=== PATIENT | male | born 1950 | race Caucasian/White ===

== ENCOUNTER 2018-05-24 10:04 | Emergency (ER) | payer MEDICARE ==
--- NOTE | 2018-05-24 10:45 | ERPHSYRPT ---
- History of Present Illness Time Seen by Provider: 05/24/18 10:30 Source: patient Exam Limitations: no limitations Patient Subjective Stated Complaint: Patient stated he fell off of a bridge about 6 feet and landed on the right side of his body 05/22/18. Triage Nursing Assessment: Patient present in ER ambulating and transfers to bed per self. Patient states he fell off of a bridge about 6 feet and landed on the right side of his body on 05/22/18. Patient states his left side ribs and hip area hurt 04/30. Yellow bruising noted to right pelvic area. Patient lungs clear A/P suha. Patient states he had open heart surgery in January. Physician History: 67-year-old white male arrives with complaint of right rib pain, pain with breathing shortness of breath pain in the right hip. Symptoms for 2 days. Patient states he was walking across his bridge, he stepped on a cat apparently jumped and fell landing on his right side. He has right rib pain shortness of breath and right hip pain as noted above. He is not taking anything for his pain. Past medical history includes high blood pressure, coronary artery disease, myocardial infarction, hypercholesterolemia. Past surgical history includes esophageal surgery, rotator cuff, appendectomy, CABG blood 60 chews Timing/Duration: today Severity: mild Modifying Factors: Improves With: other (pain worse with walking and deep breathing) Associated Symptoms: shortness of breath, chest pain (Pain right lateral ribs), No nausea, No vomiting, No abdominal pain, No heartburn, No diaphoresis, No cough, No chills Allergies/Adverse Reactions: No Known Drug Allergies Allergy (Verified 05/24/18 10:28) Home Medications: Aspirin 81 mg PO DAILY 08/02/15 [History] Celecoxib [Celebrex] 200 mg PO BID 08/02/15 [History] Escitalopram Oxalate 10 mg [Lexapro 10 MG] 10 mg PO DAILY 08/02/15 [History] Pravastatin Sodium 40 mg PO DAILY 08/02/15 [History] Clopidogrel Bisulfate [Clopidogrel] 75 mg PO DAILY 05/24/18 [History] Metoprolol Tartrate 12.5 mg PO BID 05/24/18 [History] Multivitamin [Multivitamins] 1 each PO DAILY 05/24/18 [History] Vit B6/Me-Thfolate/Me-B12/Ala [Podiapn Capsule] 1 ea PO BID 05/24/18 [History] Hx Tetanus, Diphtheria Vaccination/Date Given: No Hx Influenza Vaccination/Date Given: No Hx Pneumococcal Vaccination/Date Given: No Immunizations Up to Date: (unsure) - Past Medical History Pertinent Past Medical History: Yes Neurological History: Peripheral Neuropathy ENT History: No Pertinent History Cardiac History: Angina Respiratory History: Other Endocrine Medical History: No Pertinent History Musculoskeletal History: Osteoarthritis GI Medical History: GERD History: No Pertinent History Psycho-Social History: No Pertinent History Male Reproductive Disorders: No Pertinent History Other Medical History: 3L O2 at night, history of 3 fractured ribs - Past Surgical History Past Surgical History: Yes Neuro Surgical History: No Pertinent History Cardiac: Cardiac Catheterization Respiratory: No Pertinent History Gastrointestinal: Appendectomy Genitourinary: No Pertinent History Musculoskeletal: Orthopedic Surgery Male Surgical History: No Pertinent History Other Surgical History: esophageal surgery 33 yrs ago,right rotator cuff repair, - Social History Smoking Status: Never smoker Exposure to second hand smoke: No Drug Use: none Patient Lives Alone: Yes - Nursing Vital Signs Nursing Vital Signs: Initial Vital Signs Temperature 100.7 F 05/24/18 10:11 Pulse Rate 71 05/24/18 10:11 Respiratory Rate 18 05/24/18 10:11 Blood Pressure 112/65 05/24/18 10:11 O2 Sat by Pulse Oximetry 93 L 05/24/18 10:11 Pain Scale Pain Intensity 7 - Physical Exam General Appearance: no apparent distress, alert Eye Exam: PERRL/EOMI, eyes nml inspection Ears, Nose, Throat Exam: normal ENT inspection, TMs normal, pharynx normal, moist mucous membranes Neck Exam: normal inspection, non-tender, supple, full range of motion Respiratory Exam: normal breath sounds, chest tenderness (right lateral ribs tender with palpation), lungs clear, airway intact, No respiratory distress Cardiovascular Exam: regular rate/rhythm, normal heart sounds, normal peripheral pulses, capillary refill <2 sec, No murmur Gastrointestinal/Abdomen Exam: soft, normal bowel sounds, No tenderness, No mass Back Exam: normal inspection, normal range of motion, No CVA tenderness, No vertebral tenderness Extremity Exam: normal range of motion, pelvis stable, other (right hip tender with palpation laterally) Neurologic Exam: alert, oriented x 3, cooperative, clinical investigator II-XII nml as tested, normal mood/affect, nml cerebellar function, nml station & gait, sensation nml, No motor deficits Skin Exam: normal color, warm, dry, No rash SpO2 Interpretation: normal (93%) SpO2: 93 Oxygen Delivery: Room Air - Course Nursing assessment & vital signs reviewed: Yes EKG Interpreted by Me: RATE (68 bpm), Sinus Rhythm, NORMAL AXIS, Other ( EKGsinus rhythm, 68 bpm, normal axis, Q wave in lead 3, no acute or t wave changes.) - Radiology Exams Right Hip X-ray Interpretation: Discussed w/ radiologist (X-ray right hip: Impression: 1. No acute fracture or dislocation of the right hip is seen.) Chest X-ray Interpretation: Discussed w/ radiologist (Chest x-ray: Impression: 1. The level of inspirat May 10, 2015 the current exam revealed some mild bibasilar linear subsegmental atelectic changes 2. Interval coronary artery bypass surgery. 3. No findings of acute heart failure or focal airspace pneumonic infiltrates. ) Right Ribs X-ray Interpretation: Discussed w/ radiologist (X-ray right ribs: Impression: 1. No definite acute right sided rib fracture is seen. 2. Minimal linear plate atelectasis at the right lung base, perhaps due to splinting.) Ordered Tests: Active Orders 24 hr Category Date Time Status EKG-ER Only STAT Care 05/24/18 10:39 Active CHEST 1 VIEW (PORTABLE) Stat Exams 05/24/18 10:41 Completed HIP UNI (2V) INCL PEL IF DONE Stat Exams 05/24/18 10:42 Completed RIBS UNILATERAL Stat Exams 05/24/18 11:13 Taken - Progress Progress: improved Progress Note: 05/24/18 11:24 67-year-old white male with history of high blood pressure coronary artery disease myocardial infarction hypercholesterolemia who has had a bypass graft arrives with complaint of pain in his right lateral ribs pain in his right hip after falling off of his bridge 2 days ago. Patient states he feels short of breath she states she has pain with deep breathing in the right lateral ribs. He also is having pain in his right hip. Patient was apparently driving therefore he is not given analgesics here in the emergency room. 05/24/18 11:54 The patient's chest x-ray did not show any evidence of acute heart failure or focal airspace pneumonic infiltrates, x-ray of the right ribs do not show any fractures however there is some minimal lineral plate atelectasis at the right base which may be due to splinting. Xray of the right hip is negative for fracture or dislocation will place patient on norco for pain - Departure Time of Disposition: 11:57 Departure Disposition: Home Clinical Impression: Accidental fall Qualifiers: Encounter type: initial encounter Qualified Code(s): W19.XXXA - Unspecified fall, initial encounter Contusion of rib on right side Qualifiers: Encounter type: initial encounter Qualified Code(s): S20.211A - Contusion of right front wall of thorax, initial encounter Contusion of right hip Qualifiers: Encounter type: initial encounter Qualified Code(s): S70.01XA - Contusion of right hip, initial encounter Condition: Fair Critical Care Time: No Referrals: LULU BARRAGAN [Primary Care Provider] - Instructions: Bruised Rib Additional Instructions: Return home, Ice to contused areas 24-48 hours, Girard 5/325 #12 one orally every 4-6 hours as needed for pain, Follow-up with your family doctor if symptoms worse, no better in 48 hours, or persist longer than one week, Return for acute distress or for severe symptoms,
--- NOTE | 2018-05-24 11:35 | XRAY ---
Exam: AP upright portable chest film sitting on a cart from 05/24/2018. Comparison: Two-view chest from 05/10/2015. Indication: Patient fell 2 days ago, right rib pain, history of prior open heart surgery. Findings: The level of inspiration is not as deep on today's study as compared to 05/10/2015. I believe there is some minimal bibasilar subsegmental atelectatic changes on the current study. An airspace infiltrate is not seen. The transverse heart size appears within normal limits. There is evidence of interval CABG with midline sternotomy as compared to 05/10/2015. I again note several surgical clips in the projection of the gastroesophageal junction. Correlate with prior surgical history. The central pulmonary vessels do not appear congested. No pneumothorax or pleural fluid is seen. No acute osseous process is seen. There again is a suggestion of partial excision of the lateral end of the right clavicle representing no change from 05/10/2015. Impression: 1. The level of inspiration is not as deep on the current study as compared to 05/10/2015. The current exam reveals some mild bibasilar linear subsegmental atelectatic changes. 2. Interval coronary artery bypass surgery. 3. I see no findings of acute heart failure or focal airspace pneumonic infiltrates. 4. Evidence of other postsurgical changes, as discussed above.
--- NOTE | 2018-05-24 11:36 | XRAY ---
Exam: Two-view right hip from 05/24/2018. Comparison: None. Indication: Patient fell 2 days ago, complains of right hip pain. Findings: AP and frog-leg lateral views of the right hip were obtained. There is no acute fracture or dislocation. The right pubic ring appears intact. The right hip joint space is adequately preserved. The right sacroiliac joint appears unremarkable. Impression: 1. No acute fracture or dislocation of the right hip is seen.
--- NOTE | 2018-05-24 11:56 | XRAY ---
Exam: Right rib films from 05/24/2018. Comparison: Right rib films from 02/10/2016. Indication: Patient fell 2 days ago, complains of right rib pain, history of prior open heart surgery. Findings: 4 images of the right rib cage were obtained in AP and oblique projections. I again see evidence of prior CABG with midline sternotomy. There are 12 pairs of thoracic ribs. Minimal right basilar plate atelectasis is seen. I see no definite acute right rib fracture line or cortical step-off deformity to suggest a displaced fracture. No right-sided pneumothorax or pleural effusion is seen. I again see findings suggesting past partial excision of the lateral end of the right clavicle representing no change. Impression: 1. No definite acute right-sided rib fracture is seen. 2. I do note minimal linear plate atelectasis at the right lung base, perhaps due to splinting. Correlate clinically.
[2018-05-24 12:09] VITALS: BP 95/70; PULSE 69; O2SAT 92
== END 2018-05-24 12:12 | disposition home or self-care (01) ==
LOC: ED 10:04
DX: S20.211A Contusion of right front wall of thorax, initial encounter (principal); S70.01XA Contusion of right hip, initial encounter; W17.89XA Other fall from one level to another, initial encounter; Y92.89 Other specified places as the place of occurrence of the external cause; I10 Essential (primary) hypertension; I25.810 Atherosclerosis of coronary artery bypass graft(s) without angina pectoris; I25.2 Old myocardial infarction; E78.00 Pure hypercholesterolemia, unspecified; Z79.899 Other long term (current) drug therapy; G62.9 Polyneuropathy, unspecified; M19.90 Unspecified osteoarthritis, unspecified site; K21.9 Gastro-esophageal reflux disease without esophagitis
CPT/HCPCS: 71045; 71100; 73502; 93005; 99284

== ENCOUNTER 2021-12-21 14:24 | Day surgery (SDC) | payer MEDICARE ==
[2021-12-21] MEDS ORDERED: Depo-Medrol 40 MG/ML IM ONE (14:25)
[2021-12-21] MEDS ORDERED: BUPIVACAINE 0.5% VIAL IJ ONE (14:25)
[2021-12-21] MEDS ORDERED: Lactated Ringers 1,000 ML IV ONE (16:04)
[2021-12-21] MEDS ORDERED: DIPRIVAN 200 MG/20 ML IV ONE (17:27)
--- NOTE | 2021-12-21 19:27 | XRAY ---
Indication: Right hip injection. Intraoperative fluoroscopy provided for 21 seconds. Single digital spot image obtained prone submitted for interpretation demonstrates needle tip lateral to the right femur neck. Small amount of contrast injected for needle tip placement. Correlate with intraoperative findings/report.
--- NOTE | 2021-12-21 19:27 | XRAY ---
Indication: Right SI joint injection. Intraoperative fluoroscopy provided for 7 seconds. 2 digital spot image submitted for interpretation demonstrates needle tip projecting over the inferior right SI joint. Correlate with intraoperative findings/report.
--- NOTE | 2021-12-22 09:22 | XRAY ---
7 seconds fluoroscopy time in surgery for injection of the right SI joint.
--- NOTE | 2021-12-22 09:22 | XRAY ---
21 seconds fluoroscopy time in surgery for intra-articular injection of the right hip.
== END 2021-12-21 17:50 | disposition home or self-care (01) ==
LOC: SDC-PAIN 14:24
PROVIDERS: ATTEND Psychiatry & Neurology Pain Medicine
DX: M46.1 Sacroiliitis, not elsewhere classified (principal); M16.11 Unilateral primary osteoarthritis, right hip
CPT/HCPCS: 20610; 27096; 72020; 73501; 77002; G0260; J1030; J2704; Q9966

== ENCOUNTER 2022-01-12 13:31 | Day surgery (SDC) | payer MEDICARE ==
[2022-01-12] MEDS ORDERED: Depo-Medrol 40 MG/ML IM ONE (13:32)
[2022-01-12] MEDS ORDERED: Sodium Chloride 0.9(Preservative Free) 10 ML IJ ONE (13:32)
[2022-01-12] MEDS ORDERED: Lactated Ringers 1,000 ML IV ONE (14:56)
[2022-01-12] MEDS ORDERED: DIPRIVAN 200 MG/20 ML IV ONE (15:16)
--- NOTE | 2022-01-12 16:35 | XRAY ---
Indication: Right L4-S1 transforaminal SERA. Intraoperative fluoroscopy provided for 31 seconds. 3 digital spot image submitted for interpretation demonstrates posterior needle tips projecting over the expected right L4 and L5 nerve roots. Small amount of contrast injected for needle tip placement. Correlate with intraoperative findings/report.
--- NOTE | 2022-01-12 16:39 | XRAY ---
31 seconds of fluoroscopy was used in surgery for a right L4-S1 transforaminal SERA.
== END 2022-01-12 15:45 | disposition home or self-care (01) ==
LOC: SDC-PAIN 13:31
PROVIDERS: ATTEND Psychiatry & Neurology Pain Medicine
DX: M54.16 Radiculopathy, lumbar region (principal); I10 Essential (primary) hypertension
CPT/HCPCS: 64483; 64484; 72100; 77003; J1030; J2704; Q9966

== ENCOUNTER 2024-04-30 05:37 | Day surgery (SDC) | payer MEDICARE ==
[2024-04-30] MEDS: Lactated Ringers 1,000 ML IV SCH (06:47)
[2024-04-30] MEDS: KEFZOL 1 GM/50 ML PREMIX** 1 GM/50 ML IVPB IV SCH (06:47)
[2024-04-30 07:00] LABS: Hematocrit 39.1 % (40.1-51.0); Hemoglobin 13.2 g/dL (13.7-17.5); Mean Cell Volume 92.7 fL (79.0-92.2); Mean Corpuscular Hemoglobin 31.3 pg (25.7-32.2); Mean Corpuscular Hgb Concent. 33.8 g/dL (32.3-36.5); Mean Platelet Volume 9.4 fL (9.4-12.4); Platelet Count 185 x10^3/uL (163-337); Red Blood Count 4.22 x10^6/uL (4.63-6.08); Red Cell Distribution Width 12.9 % (11.6-14.4); White Blood Count 4.4 x10^3/uL (4.23-9.07)
[2024-04-30 07:08] VITALS: RESP 18
[2024-04-30] MEDS ORDERED: Xylocaine-Mpf 2% 5 Ml Vial ONE (07:34)
[2024-04-30] MEDS ORDERED: TORAdol 30 mg Injection ONE (07:36)
[2024-04-30] MEDS ORDERED: SUBLIMAZE 100 MCG/2 ML ONE (07:37)
[2024-04-30] MEDS ORDERED: Versed 2 MG/2 ML Injection ONE (07:37)
[2024-04-30 09:04] VITALS: O2SAT 95
[2024-04-30 09:11] VITALS: BP 127/77; PULSE 54; TEMP 97
--- NOTE | 2024-05-01 19:40 | OP ---
SURGERY DATE/TIME: 04/30/2024 [id number] - [id number] PREOPERATIVE DIAGNOSIS: Left carpal tunnel syndrome. POSTOPERATIVE DIAGNOSIS: Left carpal tunnel syndrome. PROCEDURE: Left carpal tunnel release. SURGEON: Chidi Harvey II, ANESTHESIA: Oswald block. DESCRIPTION OF PROCEDURE AND FINDINGS: The patient was identified and informed consent was obtained. The patient was then taken to the operative suite, placed in a supine position on the operating table where the Oswald block anesthetic was administered. Once an appropriate level of anesthesia had been obtained, the left upper extremity was then prepped and draped in the usual sterile fashion. A standard time out was taken. An incision was then carried out from the distal wrist crease to the level of the fully abducted thumb webspace just ulnar to the thenar crease. Skin was incised and dissection was then carried out through the subcutaneous tissue. Heiss retractors were positioned proximally and distally, and a Ragnell retractor was placed proximally into skin and subcutaneous tissue. Dissection was carried out through the superficial palmar fascia and the retractors were then repositioned. Utilizing a fresh #15 blade, the transverse carpal ligament was resected. Care was taken to stay on the ulnar side of the wound as the median nerve was noted to be on the radial side. Once the transverse carpal ligament had been released, the antebrachial fascia was then split proximally for a distance of about 2 cm under direct vision with baby Metzenbaum scissors. The motor branch was identified and noted to be intact. There were no masses or cysts noted in the floor. The nerve was noted to be somewhat flattened and hyperemic as well as somewhat hourglass shaped. The wound was then copiously irrigated and the wound was then closed with interrupted 5-0 nylon suture. Adaptics, 4 x 4's and a Afshin dressing applied. The patient was then transferred to the cart and taken to Day Surgery in satisfactory condition having tolerated the procedure well.
== END 2024-04-30 09:22 | disposition home or self-care (01) ==
LOC: SDC 05:37
PROVIDERS: ATTEND Orthopaedic Surgery
DX: G56.02 Carpal tunnel syndrome, left upper limb (principal)
CPT/HCPCS: 36415; 64721; 85027; J0690; J1885; J2250; J3010

== ENCOUNTER 2024-08-27 12:40 | Day surgery (SDC) | payer MEDICARE ==
[2024-08-27] MEDS ORDERED: Depo-Medrol 40 MG/ML IM ONE (12:41)
[2024-08-27] MEDS ORDERED: BUPIVACAINE 0.5% VIAL IJ ONE (12:41)
[2024-08-27] MEDS ORDERED: DIPRIVAN 200 MG/20 ML IV ONE (14:37)
--- NOTE | 2024-08-27 16:26 | XRAY ---
Indication: Left shoulder and subacromial bursa injection. Intraoperative fluoroscopy provided for 17 seconds. 2 digital spot image submitted for interpretation demonstrates needle tip projecting over left glenohumeral joint superiorly. Second needle tip subacromial. Small amount of contrast injected for both needle tip placement. Correlate with intraoperative findings/report.
--- NOTE | 2024-08-27 16:58 | XRAY ---
17 seconds of fluoroscopy was used in surgery for a left intra-articular shoulder and subacromial bursa injection.
== END 2024-08-27 15:08 | disposition home or self-care (01) ==
LOC: SDC-PAIN 12:40
PROVIDERS: ATTEND Psychiatry & Neurology Pain Medicine
DX: M19.012 Primary osteoarthritis, left shoulder (principal)
CPT/HCPCS: 73030; 77002; J2704

== ENCOUNTER 2025-02-11 10:16 | Day surgery (SDC) | payer MEDICARE ==
[2025-02-11] MEDS ORDERED: Depo-Medrol 40 MG/ML IM ONE (10:17)
[2025-02-11] MEDS ORDERED: BUPIVACAINE 0.5% VIAL IJ ONE (10:17)
[2025-02-11] MEDS ORDERED: propofoL IV ONE (12:55)
--- NOTE | 2025-02-11 14:51 | XRAY ---
Indication: Left shoulder and subacromial bursa injection. Intraoperative fluoroscopy provided for 42 seconds. 2 digital spot images submitted for interpretation demonstrates needle tip projecting over left glenohumeral joint superiorly. Second needle tip subacromial. Small amount of contrast injected for needle tip placement. Correlate with intraoperative findings/report.
--- NOTE | 2025-02-11 14:55 | XRAY ---
42 seconds of fluoroscopy was used in surgery for a left shoulder intra-articular and subacromial bursa injections.
[2025-02-11] MEDS ORDERED: Lactated Ringers 1,000 ML IV ONE (16:10)
== END 2025-02-11 13:40 | disposition home or self-care (01) ==
LOC: SDC-PAIN 10:16
PROVIDERS: ATTEND Psychiatry & Neurology Pain Medicine
DX: M19.012 Primary osteoarthritis, left shoulder (principal); M75.52 Bursitis of left shoulder
CPT/HCPCS: 20610; 73030; 77002; J2704

== ENCOUNTER 2025-07-04 10:25 | Emergency (ER) | payer MEDICARE ==
--- NOTE | 2025-07-04 11:27 | ERPHSYRPT ---
- History of Present Illness Time Seen by Provider: 07/04/25 11:26 Source: patient, family Exam Limitations: no limitations Physician History: This is a 74-year-old white male patient of Dr. Hoff who arrives by private vehicle accompanied by friend after falling yesterday. [place] was doing yard work. He was walking downhill to chart picker items in the yard and lost his balance falling onto his left side and left head. His complaint is left headache, neck pain, upper back pain left rib pain and left shoulder pain. He did not come in last night because the pain was not so bad. However this morning he woke up and the pain in those areas are worse. He did not lose consciousness. He currently does not have any anterior chest pain. He is not short of breath. His room air oxygen saturation level is 96%. He is not on any anticoagulation therapy. He has a history of hyperlipidemia, coronary disease, hypertension and peripheral neuropathy. Occurred: yesterday Injuries/Pain Location: head, neck, upper extremity (Left shoulder), chest (Left-sided ribs), upper (Back) Loss of Consciousness: no loss of consciousness Quality: aching Severity of Pain-Max: moderate Severity of Pain-Current: moderate Modifying Factors: Improves With: movement Associated Symptoms (Fall): back pain (Upper), chest pain (Left side ribs), extremity injury (Left shoulder), headache, neck pain, No confusion, No shortness of breath Allergies/Adverse Reactions: No Known Drug Allergies Allergy (Verified 07/04/25 11:31) Home Medications: Aspirin 81 mg PO DAILY 08/02/15 [History] Celecoxib [Celebrex] 200 mg PO BID 08/02/15 [History] Escitalopram Oxalate [Lexapro 10 MG] 20 mg PO DAILY 08/02/15 [History] Pravastatin Sodium 40 mg PO DAILY 08/02/15 [History] Metoprolol Tartrate 12.5 mg PO BID 05/24/18 [History] Multivitamin [Multivitamins] 1 each PO DAILY 05/24/18 [History] Vit B6/Me-Thfolate/Me-B12/Ala [Podiapn Capsule] 1 ea PO BID 05/24/18 [History] Diclofenac Sodium 2 gm TOP QID PRN 04/16/24 [History] Nitroglycerin 0.4 mg Tablet [Nitrostat 0.4 MG Tablet] 1 tab SL UD 04/16/24 [History] Gabapentin [Neurontin ] 100 mg PO BID 04/30/24 [History] Hx Tetanus, Diphtheria Vaccination/Date Given: No Hx Influenza Vaccination/Date Given: No Hx Pneumococcal Vaccination/Date Given: No Travel Risk - International Travel Have you traveled outside of the country in past 3 weeks: No - Emerging Infectious Disease Are you exhibiting symptoms associated with any current EIDs: No - Review of Systems Constitutional: No Symptoms Eyes: No Symptoms Ears, Nose, & Throat: No Symptoms Respiratory: No Symptoms Cardiac: No Symptoms Abdominal/Gastrointestinal: No Symptoms Genitourinary Symptoms: No Symptoms Musculoskeletal: Back Pain (Upper back), Neck Pain, Fall, Injury (Left shoulder) Skin: No Symptoms Neurological: Headache Psychological: No Symptoms Endocrine: No Symptoms Hematologic/Lymphatic: No Symptoms Immunological/Allergic: No Symptoms All Other Systems: Reviewed and Negative - Past Medical History Neurological History: No Pertinent History Cardiac History: High Cholesterol, Hypertension Respiratory History: Sleep Apnea Endocrine Medical History: No Pertinent History Musculoskeletal History: Osteoarthritis Other Medical History: PSH: TRIPLE BYPASS SURGERY, L HAND CARPAL TUNNEL, R SHOULDER SX, APPENDECTOMY. PSH: TRIGGER FINGER, - Past Surgical History Past Surgical History: Yes Neuro Surgical History: No Pertinent History Cardiac: Cardiac Catheterization Respiratory: No Pertinent History Gastrointestinal: Appendectomy Genitourinary: No Pertinent History Musculoskeletal: Orthopedic Surgery Male Surgical History: No Pertinent History Other Surgical History: esophageal surgery 33 yrs ago,right rotator cuff repair, - Social History Smoking Status: Never smoker Exposure to second hand smoke: No - Nursing Vital Signs Nursing Vital Signs: Initial Vital Signs Pulse Rate 98 H 07/04/25 11:32 Respiratory Rate 18 07/04/25 11:32 Blood Pressure 123/94 07/04/25 11:32 O2 Sat by Pulse Oximetry 95 07/04/25 11:32 Pain Scale Pain Intensity 10 - Stephenie Coma Score Best Eye Response (Stephenie): (4) open spontaneously Best Verbal Response (Stephenie): (5) oriented Best Motor Response ([place]): (6) obeys commands Stephenie Total: 15 - Physical Exam General Appearance: no apparent distress, alert Head Injury: contusions (With associated mild abrasion left of midline parietal region) Eye Exam: PERRL/EOMI, eyes nml inspection ENT Exam: airway nml, nml ext.inspection Neck Exam: supple, trachea midline, full range of motion, normal alignment, normal inspection, No focal neuro deficit Respiratory/Chest Exam: normal breath sounds, other (Left-sided rib pain), No respiratory distress, No ecchymosis, No crepitus, No wheezing, No accessory muscle use Cardiovascular Exam: normal heart sounds, regular rate/rhythm Gastrointestinal Exam: soft, normal bowel sounds, No tenderness Rectal Exam: not done Back Exam: normal inspection, normal range of motion, No CVA tenderness, No vertebral tenderness Extremity Exam: normal inspection, limited range of motion (Left shoulder), pain with movement (Left shoulder) Neurologic Exam: alert, oriented x 3, cooperative, silo operator II-XII nml as tested, normal mood/affect, nml cerebellar function, nml station & gait, sensation nml Skin Exam: normal color, warm, dry SpO2 Interpretation: normal O2 Delivery: Room Air - Course Nursing assessment & vital signs reviewed: Yes Ordered Tests: Active Orders 24 hr Category Date Time Status CERVICAL SPINE WO CONTRAST [CT] Stat Exams 07/04/25 11:45 Completed CHEST WITHOUT CONTRAST [CT] Stat Exams 07/04/25 11:46 Completed HEAD WITHOUT CONTRAST [CT] Stat Exams 07/04/25 11:46 Completed RECONSTRUCTION [CT] Stat Exams 07/04/25 11:46 Completed SHOULDER Stat Exams 07/04/25 11:45 Taken - Progress Progress: pain not gone completely, re-examined Progress Note: 07/04/25 11:55 My medical decision making and the assignment of moderate complexity of this patient's medical issue today is based on review of the patient's past medical history, review the patient's medication list, reviewed patient drug allergy list, history present illness and physical findings on examination. The workup in this patient includes CT scan of the head, CT scan of cervical spine, CT scan of thoracic spine, CT scan of the chest and left shoulder x-ray. Differential diagnosis includes but is not limited to fracture/dislocation left shoulder, acute intracranial abnormality, fracture/subluxation cervical spine, fracture/subluxation thoracic spine, rib contusions, rib fractures, pulmonary contusion 07/04/25 13:48 I interpreted the preliminary x-ray of the left shoulder report. I see no acute fracture or dislocation 07/04/25 13:54 CT scan of the chest without contrast was interpreted by the radiologist. The impression states no evidence of pulmonary contusion, pneumothorax, pleural effusion or acute thoracic injury. There is thoracic spine spondylosis with mild degenerative wedging. CT scan of the cervical spine was interpreted by the radiologist. The impression states indeterminate age anterior wedging of T1 approximately 30% height loss. Osteopenia texture of bones visualized. Likely degenerative C3/C4 and C4/C5 minimal posterior subluxation. Multiple levels cervical spine disc bulges with variable degree of spinal canal and neuroforaminal stenosis. Advise MRI of the cervical spine for further evaluation. I reviewed the results with the patient. 07/04/25 14:[address] scans were performed without contrast and were interpreted by the radiologist. The impressions are as follows: CT scan of the head shows no CT evidence of acute intracranial hemorrhage or skull fractures. There are chronic microvascular changes. CT scan of thoracic spine reconstruction shows no fracture lines. There are multilevel mild reduced height of mid to lower thoracic vertebrae secondary to osteopenia. T6 vertebral body and caudally shows multilevel diffuse disc bulg es. Counseled pt/family regarding: diagnosis, need for follow-up, rad results Medical Desision Making - Independent Historian Additional History obtained from: Relative/friend - Diagnostic Testing Diagnostic test were ordered, analyzed, and reviewed by me: Yes Radiological Interpretation: Reviewed by me, Teleradiologist Report - Risk of complications Low Risk: Low risk of morbidity from additional dx testing or treatment - Departure Departure Disposition: Home Clinical Impression: Fall with no significant injury, Skin abrasion, Multiple contusions Condition: Stable Critical Care Time: No Referrals: RODRIGUE HOFF DO [Primary Care Provider, [facility]] - Follow up/PCP as directed Additional Instructions: Ice pack to tender areas 3 times a day for the next 3 days. If there are no contraindications, use Tylenol and ibuprofen for pain control. Call your primary care provider on 07/06/2025, to make arrangements for follow-up appointment to be seen in the next 3 to 5 days and to discuss any additional radiographic studies to further delineate your chronic cervical spine, thoracic spine issues. Continue your other medications as prescribed.
[2025-07-04 11:34] VITALS: PULSE 64; RESP 18; TEMP 97
--- NOTE | 2025-07-04 13:38 | XRAY ---
CLINICAL HISTORY: Fall injury COMPARISON: No previous studies are available for comparison. TECHNIQUE: A CT scan of the cervical spine was performed without the administration of intravenous contrast. Contiguous axial images were obtained from the skull base to the upper thoracic spine. Coronal and sagittal reformatted images were also reviewed. One of the following dose reduction techniques was utilized for this exam. Automated exposure control, adjustment of the mA and/or kV according to patient size, and use of iterative reconstruction. FINDINGS: Osteopenic texture of the examined bones. anterior wedging of T1 vertebra with about 30 % height reduction, yet no retropulsion No fracture line. Minimal posteroior sublaxation of C3/4 and C4/5 is likely degenerative. Reduction of the cervical lordosis. Spinal degenerative changes of the cervical spine are evident by: marginal osteophytic lipping, opposing end plates, and narrowed all cervical discs and irregular vertebral end plates with erosions. Vertebrae: The vertebral bodies are normal in height and alignment. Intervertebral Discs: C3/4 down to C7-T1 diffuse disc bulges are seen indenting the anterior subarachnoid space and suspecting touching/indenting the cord at C3-4, C5-6, and C7-T1 levels, with a subsequent variable degree of spinal canal and neural foraminal stenosis bilateral multi-level facet arthropathy. Prevertebral Soft Tissues: The prevertebral soft tissues are normal in thickness without evidence of mass or abnormal fluid collection. Additional Findings: No other significant findings are noted in the visualized soft tissue structures or bony elements. IMPRESSION: 1. indetrimant age anterior wedging of T1 vertebra with about 30 % height reduction, yet no retropulsion 2. Osteopenic texture of the examined bones. 3. Minimal posteroior sublaxation of C3/4 and C4/5 is likely degenerative. 4. Spondyolgenerative changes of the cervical spine. 5. variable degree of C3/4 down to C7-T1 diffuse disc bulges with suspecting touching/indenting the cord at C3-4, C5-6, and C7-T1 levels, subsequent variable degree of spinal canal and neural foramina stenosis 6. MRI cervical spine is advised for proper assessment of the neural and cord compromise Electronically Signed by: Delfino Martinez MD. (07/04/2025 13:37:04 EDT)
--- NOTE | 2025-07-04 13:46 | XRAY ---
CLINICAL HISTORY: Fall injury COMPARISON: None. TECHNIQUE: Contiguous axial CT images of the chest were acquired without administration of intravenous contrast. Coronal and sagittal reconstructions were obtained. One of the following dose reduction techniques were utilized for this exam: Automated exposure control, adjustment of the mA and/or kV according to patient size, use of iterative reconstruction. FINDINGS: Lungs: Bilateral basal atelectatic bands seen. The lung parenchyma is clear with no evidence of consolidation, collapse, or focal lesions. No pulmonary nodules or masses are identified. No evidence of interstitial lung disease or emphysema. No pleural effusion or pleural thickening. Elevated left copula of the diaphragm seen. Mediastinum: The mediastinum is normal in size and contour. No mediastinal mass or abnormal lymphadenopathy. The heart size is within normal limits. Hilar Structures: The hilar structures appear normal without enlargement or abnormality. Trachea and Main Bronchi: The trachea and main bronchi are patent without evidence of obstruction or abnormality. Coronary post interventional changes seen. Chest Wall: The chest wall is unremarkable with no evidence of soft tissue or bony abnormalities. Upper Abdomen: Post operative surgical clips seen at the gastric cardia. Visualized portions of the liver, spleen, adrenal glands, and kidneys are unremarkable. Bones: Median sternotomy sutures seen. Thoracic spondylosis with mild degenrative wedging seen. Visualized osseous structures are normal, no evidence of fracture or lytic/sclerotic lesions. IMPRESSION: 1. No CT evidence of pulmonary contusion, pneumothorax, pleural effusion, or acute thoracic injury. 2. Bilateral basal atelectatic bands. 3. Elevated left hemidiaphragm. 4. Post-interventional coronary changes and median sternotomy sutures (postsurgical). 5. Thoracic spondylosis with mild degenerative wedging. Electronically Signed by: Delfino Martinez MD. (07/04/2025 13:45:29 EDT)
--- NOTE | 2025-07-04 13:52 | XRAY ---
CLINICAL HISTORY: Fall injury COMPARISON: None. TECHNIQUE: Multiple axial images of CT thoracic spine without contrast was submitted in bone and soft tissue window. One of the following dose reduction techniques were utilized for this exam: Automated exposure control, adjustment of the mA and/or kV according to patient size, and use of iterative reconstruction. FINDINGS: Diffuse osteopenic texture of the examined bones. Multilevel mild reduced height of the mid and lower thoracic vertebrae due to osteopenia. No definite fracture line. Exaggerated dorsal kyphosis. Spondylodegenerative changes of the thoracic spine are evident by: large anterolateral marginal osteophytic lipping, narrowed all thoracic discs, and few intra-discal air (Vacuum phenomena), and multiple small Schmrols nodes noted with vertebral end plate irregularities. T6/7 down to D11/12 multi-level diffuse disc bulges are effacing the anterior subarachnoid space and mildly touching the cord. Spinal Canal and Neural Foramina: Spinal canal is of normal caliber with no evidence of spinal stenosis. Neural foramina are patent bilaterally at all levels. No evidence of nerve root compression. Facet Joints: Normal appearance of the facet joints. No evidence of facet arthropathy or significant degenerative changes. Soft Tissues: Normal appearance of the paraspinal soft tissues. No abnormal masses, fluid collections, or signs of inflammation. Multiple midline sternotomy sutures are seen. A left lower calyceal dense stone is noted, non-obstructing. Surgical sutures at the gastro-esophageal junction. Colonic diverticular outpouchings, with no acute diverticulitis. IMPRESSION: 1. No fracture lines. 2. Diffuse osteopenic texture of the examined bones. 3. Multilevel mild reduced height of the mid and lower thoracic vertebrae due to osteopenia. 4. Exaggerated thoracic kyphosis. 5. Spondylodegenerative changes of the thoracic spine 6. T6/7 down to D11/12 multi-level diffuse disc bulges. Electronically Signed by: Delfino Martinez MD. (07/04/2025 13:51:00 EDT)
--- NOTE | 2025-07-04 13:54 | XRAY ---
CLINICAL HISTORY: Fall injury COMPARISON: None. TECHNIQUE: Axial non-contrast CT scan of the brain was performed from the skull base to the high parietal region. One of the following dose reduction techniques were utilized for this exam: Automated exposure control, adjustment of the mA and/or kV according to patient size, use of iterative reconstruction. FINDINGS: Brain Parenchyma: Mild gotti radiata and brain stem hypodenisties seen. No evidence of acute infarct, hemorrhage, or mass effect. No abnormal areas of hypo- or hyperattenuation. Ventricular System: Ventricles are normal in size and configuration. No evidence of hydrocephalus or ventricular enlargement. Subarachnoid Spaces: Prominent cortical sulci and cisterns. No evidence of subarachnoid hemorrhage or extra-axial fluid collections. Cerebellum and Brainstem: No masses, lesions, or areas of abnormal density. Orbits: Normal appearance of the globes, optic nerves, and extraocular muscles. No evidence of orbital masses or abnormal density. Sinuses: Clear paranasal sinuses. No evidence of sinusitis or mucosal thickening. Mastoid Air Cells: Clear mastoid air cells. No evidence of mastoiditis. Skull: Normal skull morphology. Occipital spur seen. IMPRESSION: 1. No CT evidence of acute intracranial hemorrhage or skull fractures. 2. Chronic microvascular ischemic changes. 3. Occipital spur noted (incidental). Electronically Signed by: Delfino Martinez MD. (07/04/2025 13:52:29 EDT)
[2025-07-04 14:02] VITALS: BP 129/80; O2SAT 97
--- NOTE | 2025-07-04 20:08 | XRAY ---
Indication: Fall injury. Comparison: February 14, 2024 3 view left shoulder unchanged again demonstrating osteopenia, mild AC degenerative changes, and CABG surgery. No new/acute bony, articular, or soft tissue abnormalities.
== END 2025-07-04 14:27 | disposition home or self-care (01) ==
LOC: ED 10:25
DX: S00.01XA Abrasion of scalp, initial encounter (principal); T14.8XXA Other injury of unspecified body region, initial encounter; W01.0XXA Fall on same level from slipping, tripping and stumbling without subsequent striking against object, initial encounter; Y93.H9 Activity, other involving exterior property and land maintenance, building and construction; Y92.007 Garden or yard of unspecified non-institutional (private) residence as the place of occurrence of the external cause; I10 Essential (primary) hypertension; Z79.899 Other long term (current) drug therapy